=== PATIENT | female | born 1950 | race Caucasian/White ===

== ENCOUNTER → 2017-01-10 | Outpatient (CLI) | payer OTHER | LOC: BMCIMAGING 11:46 | PROVIDERS: ATTEND Internal Medicine | DX: R05 Cough (principal) ==

== ENCOUNTER → 2017-10-02 | Outpatient (CLI) | payer OTHER | LOC: BMCIMAGING 10:17 | PROVIDERS: ATTEND Internal Medicine | DX: M25.862 Other specified joint disorders, left knee (principal) ==